=== PATIENT | male | born 1990 | race Caucasian/White ===

== ENCOUNTER 2019-11-21 18:24 | Emergency (ER) | payer MEDICAID ==
[~2019-11-21] VITALS: Ht 180.3 cm; Wt 81.8 kg
[2019-11-21 18:33] VITALS: Ht 180.3 cm; Wt 81.8 kg
[2019-11-21] MEDS ORDERED: ERYTHROMYCIN OPT1 GM LEFT EYE (19:02)
[2019-11-21 19:16] VITALS: BP 135/89
== END 2019-11-21 19:17 | disposition home or self-care (01) ==
LOC: D.ER 18:24
DX: S05.02XA Injury of conjunctiva and corneal abrasion without foreign body, left eye, initial encounter (principal); W22.8XXA Striking against or struck by other objects, initial encounter; Y93.9 Activity, unspecified; Y92.9 Unspecified place or not applicable

== ENCOUNTER 2019-12-23 15:59 | Inpatient (IN) | payer MEDICAID ==
[~2019-12-23] VITALS: Ht 177.8 cm; Wt 79.1 kg
[~2019-12-23 15:59] MED LIST: ERYTHROMYCIN OPT1 GM LEFT EYE
[2020-01-05] MEDS ORDERED: OMEPRAZOLE20 M1 (10:00)
[2020-01-05] MEDS ORDERED: HYDROCODON-ACE1 EA10 (10:00)
[2020-01-07] VITALS (12 sets, daily range): BP systolic 96–142; BP diastolic 50–91; Ht 177.8 cm; Wt 79.1 kg
--- NOTE | 2020-01-07 13:00 | NUR ---
NO NUMBNESS OR TINGLING ,EQUAL STRENGHTS IN LOWER EXTREMETIES
--- NOTE | 2020-01-07 13:40 | NUR ---
PT RECIEVED FROM OR. VSS. PT RESTING COMFORTABLY. FAMILY AT BEDSIDE. CORAZON UPDATE. DENIES NEEDS WILL CONTINUE TO MONITOR
--- NOTE | 2020-01-07 15:00 | NUR ---
GIVEN ICE CHIPS WATER AND JELLO, TOLERATED WILL. DENIES NEEDS WILL CONTINUE TO MONITOR
--- NOTE | 2020-01-07 17:38 | NUR ---
PT EATING DINNER AT THIS TIME, WILL CON'T TO MONITOR
--- NOTE | 2020-01-07 19:10 | NUR ---
REPORT RECEIVED INITIAL ASSESSMENT COMPLETE. INCISION TO MID LOWER ABD CLEAN INTACT NO DRAINAGE NO REDNESS NO ODOR NOTED. EQUAL STRENGTH IN EXTREMITIES AND SENSATION WNL. BED LOW POSITION CL IN REACH WILL CONTINUE TO MONITOR
--- NOTE | 2020-01-07 19:27 | NUR ---
MEDICATED WITH MORPHINE 2 MG SIVP PER PRN FOR PAIN 7 ON 1-10 SCALE WILL MONITOR CL IN REACH VSS
--- NOTE | 2020-01-07 20:30 | NUR ---
PTS MOTHER AT BEDSIDE FOR VISITATION UPDATE GIVEN
--- NOTE | 2020-01-07 21:00 | NUR ---
ANSWERED PTS CALL LIGHT C/O PAIN FROM CATHETER. CHECKED AND REPOSITIONED TUBING WITH INCREASE IN URINE FLOW NOTED WILL CONTINUE TO MONITOR
--- NOTE | 2020-01-07 21:10 | NUR ---
ANSWERED PTS CALL LIGHT C/O PAIN MEDICATED PER PRN EMAR WILL MONITOR
[2020-01-08] VITALS (19 sets, daily range): BP systolic 102–143; BP diastolic 59–86
--- NOTE | 2020-01-08 01:10 | NUR ---
ANSWERED PTS CALL LIGHT REQUESTING PAIN MEDICATION MEDICATED WITH MORPHINE PER PRN EMAR WILL CONTINUE TO MONITOR
--- NOTE | 2020-01-08 03:45 | NUR ---
ANSWERED PTS CL REQUESTING PAIN MED SEE EMAR
--- NOTE | 2020-01-08 06:50 | NUR ---
DR WONG CALLED THIS AM UPDATE GIVEN. ORDERED [place] TO BE REMOVED. LUMBAR CORSET AND PT TO GET PT UP WILL BE BY TO SEE PT TODAY
--- NOTE | 2020-01-08 07:00 | NUR ---
AWAKE AND ALERT SKIN WARM AND DRY. IV RIGHT WRIST WITHOUT REDNESS OR SWELLING INFUSING WITH 1/2 NS AT 50 ML HOUR. [place] CATHETER JUST REMOVED. MONITOR SR. ABD INCISION OPEN TO AIR, INTACT NO REDNESS OR DRAINAGE.
--- NOTE | 2020-01-08 08:00 | NUR ---
BREAKFAST TRAY SERVED ATE WELL. NO DISTRESS.
--- NOTE | 2020-01-08 08:58 | NUR ---
INSTRUCTIONS ON SPLINTING ABD AND INCENTIVE DONE. ALERT NO DISTRESS. PAIN MEDS GIVEN, PO MEDS TAKEN WITHOUT DIFFICULTY
--- NOTE | 2020-01-08 09:30 | NUR ---
PHYSICAL THERAPY HERE UP IN CHAIR AT BEDSIDE. STOOD AND VOIDED 350 ML OF PALE YELLOW URINE. TOLERATED FAIR. PAIN WITH MOVEMENT POST OP. ABD BINDER APPLIED. TAKING PO FLUIDS WELL.
--- NOTE | 2020-01-08 11:00 | NUR ---
RETURNED TO BED WITH ASSISTANCES. STILL PAINFUL TO MOVE. ENCOURAGEMENT GIVEN. IV MORPHINE GIVEN TO HELP WITH PAIN. VOIDED 125 ML OF CLEAR PALE YELLOW URINE.
--- NOTE | 2020-01-08 12:00 | NUR ---
MOTHER OF PATIENT HERE UPDATE GIVEN. PROVIDED LUNCH FOR PATIENT. STOOD AT BEDSIDE TO VOID.
--- NOTE | 2020-01-08 13:00 | NUR ---
stood at bedside to void. still painful for patient to move. voided 150 ml clear pale yellow urine. abd incision intact abd binder in place
--- NOTE | 2020-01-08 15:00 | NUR ---
resting well no distress eyes closed. resp deep and regular
--- NOTE | 2020-01-08 17:30 | NUR ---
dr. gill here orders received
--- NOTE | 2020-01-08 18:30 | NUR ---
up in chair at bedside. still having alot of abd pain when transfering.
--- NOTE | 2020-01-08 19:29 | NUR ---
REPORT RECEIVED INITIAL ASSESSMENT COMPLETE. PT UP TO CHAIR READY TO GET BACK IN BED AND NEEDING PAIN MEDICATION. PT DENIES BACK AND LEG PAIN BUT ABDOMINAL INCISION AND ABD VERY PAINFUL. MINIMAL ASSIST NEEDED TO GET BACK IN BED PT STEADY GAIT. REQUESTED PAIN MED MEDICATED WITH MORPHINE 2 MG PER PRN EMAR. BED LOW POSITION CL IN REACH . CM READING SB-SR WITHOUT ECTOPY ALARMS ON AND AUDIBLE. CPOC
--- NOTE | 2020-01-08 23:30 | NUR ---
ANSWERED PTS CALL LIGHT MEDICATED FOR PAIN ABD INCISION WITH MORPHINE 2 MG SIVP PT WOKE UP IN INCREASED PAIN SO MORPHINE USED TO WORK QUICKER.
--- NOTE | 2020-01-08 23:40 | NUR ---
Carole MAZARIEGOS RN ANSWERED PTS CALL LIGHT ASSISTED TO STAND TO USE URINAL RIGHT FOREARM PIV PULLED OUT IN PROCESS.
--- NOTE | 2020-01-09 00:06 | NUR ---
PIV 20 GUAGE RIGHT UPPER ARM
--- NOTE | 2020-01-09 01:50 | NUR ---
PT C/O PAIN MEDICATED WITH HYDROCODONE SEE EMAR
[2020-01-09 02:00] VITALS: BP 114/72
[2020-01-09 07:00] VITALS: BP 111/80
--- NOTE | 2020-01-09 07:15 | NUR ---
AWAKE AND ALERT STANDING TO VOID. UP IN CHAIR AT BEDSIDE. IMPROVING ON AMBULATION STILL VERY SLOW AND CAUTIONS. PAIN MEDS ORDERED FROM PHARMACY. IV RIGHT UPPER ARM WITHOUT REDNESS OR SWELLING. SALINE LOCKED. VOIDED CLEAR YELLOW URINE. DENIES ANY LOWER BACK, OR LEG PAIN RIAN ANY NUMBNESS OR TINGLING IN EXTREMITITES.
--- NOTE | 2020-01-09 08:00 | NUR ---
BREAKFAST SERVED ATE FEW BITES. AMBULATES COMPLETELY AROUND THE UNIT. TOLERATED WELL.
--- NOTE | 2020-01-09 09:20 | NUR ---
HIBCLENS BATH GIVEN WITH LINEN CHANGE. INCISION LOWER MID ABD INTACT NO REDNESS OR DRAINAGE. DRIED BLOOD NOTED. WASHED LIGHTLY WITH HIBCLENS. PAD TRY. ABD BINDER IN PLACE. ABD PAD APPLIED SECURE WITH ABD BINDER. PATIENT TOLERATED FAIR. RETURNED TO BED
--- NOTE | 2020-01-09 10:30 | NUR ---
UP TO CHAIR AT BEDSIDE. IMPROVEMENT NOTED IN GETTING UP OUT OF BED
[2020-01-09 11:00] VITALS: BP 131/77
--- NOTE | 2020-01-09 11:30 | NUR ---
LUNCH SERVED ATE WELL.
[2020-01-09] MEDS ORDERED: HYDROCODON-ACE1 EA10 PO (11:48)
--- NOTE | 2020-01-09 12:43 | NUR ---
AARON HUBBARD REVIEWED DISCHARGE PAPERS WITH PATIENT.PRESCRIPTION FOR PAIN MEDS GIVEN. WAITING ON HIS MOTHER TO ARRIVE
== END 2020-01-09 13:31 | disposition home or self-care (01) | DRG 460 ==
LOC: D.SDCHOLD 01-07 05:32 → D.ICU 01-07 05:32 → D.PAN 01-07 07:30 → D.OPS 01-07 07:30 → EDSTATUS 01-07 07:30 → D.ICU 01-07 12:53
PROVIDERS: ADMIT Neurological Surgery; ATTEND Neurological Surgery
PROC: 0SG30J1 Fusion of Lumbosacral Joint with Synthetic Substitute, Posterior Approach, Posterior Column, Open Approach (ICD-10-PCS; principal; 2020-01-07 07:30)
DX: M54.16 Radiculopathy, lumbar region (principal); F17.200 Nicotine dependence, unspecified, uncomplicated; M51.36 Other intervertebral disc degeneration, lumbar region

== ENCOUNTER → 2020-01-05 13:34 | Outpatient (CLI) | payer MEDICAID ==
[2019-11-21 18:33] VITALS: BMI 25.1
[~2020-01-05 13:34] MED LIST changes: +HYDROCODON-ACE1 EA10; +OMEPRAZOLE20 M1
== END | disposition home or self-care (01) ==
LOC: D.LABREF 13:34
PROVIDERS: ATTEND Neurological Surgery
DX: Z11.59 Encounter for screening for other viral diseases (principal)